=== PATIENT | male | born 1990 | race Caucasian/White ===

== ENCOUNTER 2018-01-22 07:25 | Emergency (ER) | payer OTHER ==
[2018-01-22 07:30] VITALS: TEMP 97.3; BMI 24.3
--- NOTE | 2018-01-22 08:12 | ED PDOC ---
HPI: Back Time Seen by Provider: 01/22/18 07:52 Chief Complaint (Nursing): Back Pain History Per: Patient (27 yo male presents for evaluation of persistent lower lumbar pain that started acutely after doing -lifts yesterday. he has taken ibuprofen 600mg twice (last dose 7hours earlier). Pain is present and is worsened with spine rotation to the right more than the left. Also more pain with hyperextension and bending forward. He denies saddle anesthesia, radicular symptoms and bowel or bladder problem. He denies gait instability, distal motor weakness. ) History/Exam Limitations: no limitations Current Symptoms Are (Timing): Still Present Past Medical History Reviewed: Historical Data, Nursing Documentation, Vital Signs Vital Signs: Last Vital Signs Temp 97.3 F L 01/22/18 07:29 Pulse 69 01/22/18 07:29 Resp 20 01/22/18 07:29 BP 131/68 01/22/18 07:29 Pulse Ox 100 01/22/18 07:29 - Medical History PMH: No Chronic Diseases - Surgical History Surgical History: No Surg Hx - Family History Family History: States: No Known Family Hx - Social History Current smoker - smoking cessation education provided: No - Immunization History Hx Influenza Vaccination: Yes - Home Medications Home Medications: Ambulatory Orders Medication Instructions Recorded Cyclobenzaprine [Cyclobenzaprine 10 mg PO TID #30 tab 01/22/18 HCl] Naproxen [Naprosyn] 500 mg PO BID PRN #20 tablet 01/22/18 - Allergies Allergies/Adverse Reactions: Allergies Allergy/AdvReac Type Severity Reaction Status Date / Time No Known Allergies Allergy Verified 01/22/18 07:36 Review of Systems ROS Statement: Except As Marked, All Systems Reviewed And Found Negative Constitutional: Negative for: Fever Gastrointestinal: Negative for: Nausea, Vomiting Genitourinary Male: Negative for: Dysuria Neurological: Negative for: Weakness, Numbness, Incoordination, Change in Speech , Confusion, Seizures, Altered Mental Status, Headache, Dizziness Physical Exam - Reviewed Nursing Documentation Reviewed: Yes Vital Signs Reviewed: Yes - Physical Exam Appears: Positive for: Well, Non-toxic, No Acute Distress Head Exam: Positive for: ATRAUMATIC, NORMAL INSPECTION, NORMOCEPHALIC Skin: Positive for: Normal Color, Warm, DRY Eye Exam: Positive for: EOMI, Normal appearance, PERRL ENT: Positive for: Normal ENT Inspection Neck: Positive for: Normal, Painless ROM Cardiovascular/Chest: Positive for: Regular Rate, Rhythm Respiratory: Positive for: CNT, Normal Breath Sounds Gastrointestinal/Abdominal: Positive for: Normal Exam, Bowel Sounds, Soft Back: Positive for: Normal Inspection, Decreased ROM. Negative for: L CVA Tenderness, R CVA Tenderness, Vertebral Tenderness Extremity: Positive for: Normal ROM Neurologic/Psych: Positive for: Alert, Oriented - ECG O2 Sat by Pulse Oximetry: 100 - Radiology X-Ray: Viewed By Tn X-Ray Interpretation: Other (loss of lumbar lordosis; normal pelvis) Disposition - Clinical Impression Clinical Impression: Acute back pain - Patient ED Disposition Is Patient to be Admitted: No Doctor Will See Patient In The: Office Counseled Patient/Family Regarding: Diagnosis, Need For Followup, Rx Given - Disposition Referrals: Maria Fernanda Garrett [Outside] Disposition: Routine/Home Disposition Time: 08:30 Condition: IMPROVED Prescriptions: Cyclobenzaprine [Cyclobenzaprine HCl] 10 mg PO TID #30 tab Naproxen [Naprosyn] 500 mg PO BID PRN #20 tablet PRN Reason: Pain, Moderate (4-7) Instructions: Lumbar Muscle Strain Forms: Golgi (Kinyarwanda), [facility] ED School/Work Excuse - POA Present On Arrival: Falls Or Trauma
[2018-01-22 09:08] VITALS: BP 108/65; PULSE 65; RESP 18; O2SAT 99
--- NOTE | 2018-01-22 09:32 | RAD ---
PROCEDURE: Radiographs of the pelvis. HISTORY: pain from lift COMPARISON: None. FINDINGS: BONES: Pelvic Bones: Unremarkable. Hips: Grossly unremarkable. JOINTS: Sacroiliac Joints: Unremarkable. Pubic Symphysis: Unremarkable. 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 IMPRESSION: No fracture . Developmental variant as above.
--- NOTE | 2018-01-22 09:34 | RAD ---
PROCEDURE: Radiographs of the Lumbar Spine. HISTORY: pain from lift COMPARISON: No prior. FINDINGS: BONES: Normal alignment. No listhesis. No fracture. Bilateral sacralization L5 transverse processes suggested DISC SPACES: Unremarkable. OTHER FINDINGS: None. IMPRESSION: Developmental variants. No fracture or subluxation
== END 2018-01-22 09:08 | disposition home or self-care (01) ==
LOC: H.ER 07:25
DX: M54.9 Dorsalgia, unspecified (principal)